=== PATIENT | male | born 1945 | race Caucasian/White ===

== ENCOUNTER 2023-05-12 22:16 | Emergency (ER) | payer MEDICARE, BC ==
[2023-05-13 00:08] LABS: APPEARANCE,URINE CLOUDY (CLEAR); BILIRUBIN,URINE LARGE (NEGATIVE); COLOR,URINE RED (YELLOW); GLUCOSE,URINE 100 mg/dL (NEGATIVE); KETONES,URINE 80 mg/dL (NEGATIVE); LEUKOCYTE ESTERASE,URINE LARGE (NEGATIVE); NITRITE,URINE POSITIVE (NEGATIVE); OCCULT BLOOD,URINE LARGE (NEGATIVE); PH,URINE 8.5 (5.0-8.0); PROTEIN,URINE >=300 mg/dL (NEGATIVE); UROBILINOGEN,URINE >=8.0 EU/dL (0.2-1.0)
[2023-05-13] MEDS ORDERED: Lidocaine 2% Jelly 10 ML Urojet MUCMEM ONE (00:42)
[2023-05-13 01:26] VITALS: BP 132/53; PULSE 58
[2023-05-13] MEDS ORDERED: Sulfamethoxazole/Trimethoprim 800-160 MG Tab PO ONE (01:27)
== END 2023-05-13 02:29 | disposition home or self-care (01) ==
LOC: JP.ED 22:16
DX: N39.0 Urinary tract infection, site not specified (principal); R31.9 Hematuria, unspecified; Z87.891 Personal history of nicotine dependence
CPT/HCPCS: 51702; 81003; 87086; 99284; A9270

== ENCOUNTER 2023-05-14 22:46 | Emergency (ER) | payer MEDICARE, BC ==
[2023-05-15 00:37] VITALS: BP 128/74; PULSE 68
== END 2023-05-15 00:30 | disposition home or self-care (01) ==
LOC: JP.ED 22:46
DX: N39.0 Urinary tract infection, site not specified (principal); R33.9 Retention of urine, unspecified; I48.91 Unspecified atrial fibrillation; E11.9 Type 2 diabetes mellitus without complications; E66.9 Obesity, unspecified; Z79.899 Other long term (current) drug therapy; Z79.01 Long term (current) use of anticoagulants; Z79.84 Long term (current) use of oral hypoglycemic drugs
CPT/HCPCS: 99283